=== PATIENT | male | born 1970 | race Caucasian/White ===

== ENCOUNTER 2023-01-24 12:39 | Emergency (ER) | payer SELFPAY ==
[2023-01-24] MEDS ORDERED: Ketorolac Tromethamine 30 MG/ML VIAL ONE (13:22)
[2023-01-24 13:39] LABS: SARS-CoV-2 NAA Rapid Test Not Detected (NotDetected)
[2023-01-24] MEDS ORDERED: Dexamethasone 10 MG/ML VIAL ONE (14:05)
== END 2023-01-24 14:27 | disposition home or self-care (01) ==
LOC: CSHERS 12:39
DX: J06.9 Acute upper respiratory infection, unspecified (principal); I10 Essential (primary) hypertension; Z87.891 Personal history of nicotine dependence; Z20.822 Contact with and (suspected) exposure to COVID-19
CPT/HCPCS: 96372; 99283; J1100; J1885